=== PATIENT | female | born 1970 | race Caucasian/White ===

== ENCOUNTER 2019-01-31 17:18 | Emergency (ER) | payer OTHER ==
[~2019-01-31] VITALS: Ht 162.6 cm; Wt 61.2 kg
[2019-01-31 17:31] VITALS: BP_SYST 110
--- NOTE | 2019-01-31 18:21 | NUR ---
Patient to ER bed 04 to gown for evaluation. Side rails up.
--- NOTE | 2019-01-31 18:30 | NUR ---
pt arrives from home w/ c/o right fourth toe pain. Pt states that the pain began last night. Does not recall any trauma to the right foot.
--- NOTE | 2019-01-31 18:35 | NUR ---
pt getting an x-ray of the right foot at the bedside.
--- NOTE | 2019-01-31 18:45 | NUR ---
MELY CENTENO at bedside examining patient.
[2019-01-31] MEDS ORDERED: IBUPROFEN 600 MG TABLET PO ONE (19:15)
[2019-01-31 19:20] VITALS: BP_SYST 110
--- NOTE | 2019-01-31 19:20 | NUR ---
Patient given written and verbal discharge instructions and verbalizes understanding. ER MD discussed with patient the results and treatment provided. Patient in stable condition. ID arm band removed. Rx of Ibuprfen given. Patient educated on pain management and to follow up with PMD. Pain Scale 0/10. Opportunity for questions provided and answered. Medication side effect fact sheet provided.
== END 2019-01-31 19:20 | disposition home or self-care (01) ==
LOC: SED 17:18
DX: S90.121A Contusion of right lesser toe(s) without damage to nail, initial encounter (principal); X58.XXXA Exposure to other specified factors, initial encounter; Y93.89 Activity, other specified; Y92.89 Other specified places as the place of occurrence of the external cause; Y99.8 Other external cause status
CPT/HCPCS: 99283